=== PATIENT | male | born 1940 | race Caucasian/White ===

== ENCOUNTER → 2017-05-25 | Day surgery (SDC) | payer OTHER ==
[2017-04-28 11:32] VITALS: Ht 165.1 cm; Wt 108.2 kg
[~2017-05-25] VITALS: Ht 165.1 cm; Wt 108.2 kg
[~2017-05-25] MED LIST: ACETAMINOPHEN 325 MG TAB PO PRN; ACT15 PO; ASPI325T45 PO; ATROPINE SULFATE 0.1 MG/ML 5ML SYR IV PRN; ATROPINE SULFATE 1% OP SOLN 2 ML BTL ONE; AcetylCHOLine CHL OP SOL 1:100 2 ML BTL ONE; BRIMONIDINE TART 0.2% OP SOLN PER DROP CHARGE ONE; EpHEDrine SULFATE INJ 50 MG/ML AMP IV PRN; EpINEphrine INJ 1MG/ML AMP 1 MG/ML AMP ONE; GLIP-171 PO; HYDR25TA5 PO; LACTATED RINGER'S 1000ML 500 ML IV SCH; LIDOCAINE 3.5% OPH GEL PER APPLICATION CHARGE OPR SCH; LIDOCAINE 4% OP SOLN DROP CHARGE ONE; LIDOCAINE 4% OP SOLN DROP CHARGE OPR SCH; LIDOCAINE HCL 1% MPF 2 ML VIAL ONE; LISI40TA PO; METF-384 PO; METO50TA16 PO; MIDAZOLAM HCL 1 MG/ML 2ML VIAL ONE; MOXIFLOXACIN OPH SOLN PER DROP CHARGE ONE; ONDANSETRON INJ 2 MG/ML 2 ML VIAL IV PRN; POVIDONE-IODINE OP SOLN 30 ML BTL ONE; PROPARACAINE 0.5% OP SOLN PER DROP CHARGE OPR SCH; SIMV40TA2 PO; TETRACAINE HCL (OPHTH) 60 DROPS/4 ML BTL OP ONE; TMPOPS15 OPB; TOBRAMYCIN/DEXAMETHASONE OPH OINT PER APPLN CHARGE ONE
[2017-05-25] MEDS: MOXIFLOXACIN OPH SOLN PER DROP CHARGE OPR SCH ×3 (11:35→11:54)
--- NOTE | 2017-05-25 12:01 | History & Physical Bridge - [place] ---
H&P Re-Evaluation Bridge Note: I have examined the patient, reviewed the History & Physical and in the interval since the performance of the History & Physical I have noted the following changes of clinical significance: No changes noted
--- NOTE | 2017-05-25 13:40 | Discharge Instructions-SurgCtr ---
Discharge Instructions Date of Service May 25, 2017. Visit Reason for Visit: Right Eye Endothelial Corneal Dystrophy Discharge Discharge Diagnosis / Problem: corneal edema right eye Discharge Goals Goal(s): Improve function Medications Stopped Medications Name(s): ASA held x 3 days. Activity Recommendations Activity Limitations: per Instructions/Follow-up section Lifting Limitations: none Anesthesia . Post Anesthesia Instructions: If you have had General Anesthesia or IV Sedation: * Do not drive today. * Resume driving when surgeon permits. * Do not make important decisions or sign legal documents today. * Call surgeon for: 1. Temperature elevations greater than 101 degrees F. 2. Uncontrollable pain. 3. Excessive bleeding. 4. Persistent nausea and vomiting. 5. Medication intolerance (nausea, vomiting or rash). * For nausea and vomiting use only clear liquids such as: tea, soda, bouillon until nausea subsides, then gradually increase diet as tolerated. * If you have any concerns or questions, call your surgeon's office. If physician is unavailable and it is an emergency, call 911 or go to the nearest emergency room. . Instructions / Follow-Up Instructions / Follow-Up ACTIVITY RECOMMENDATIONS: * Bedrest except for bathroom and meals (eyes to the mirtha) MEDICATIONS: Resume previous medications unless instructed otherwise by your surgeon. Eye drops (today and tomorrow): Gatifloxacin - one drop operative eye 4 times daily Prednisolone 1% - one drop operative eye 4 times daily SPECIAL CARE INSTRUCTIONS: * If any problems or concerns, please call Dr. Candelaria's office at . * Keep plastic shield taped over eye to sleep at night. * Keep plastic shield taped over eye except to administer eye drops. * Keep plastic shield on until office visit the following day. FOLLOW UP VISIT: Follow-up with Dr. Candelaria in the [place] office as scheduled. If not already scheduled, please call the office at . Diet Recommendations Home Diet: resume previous diet Procedures Procedures Performed: Right Eye Descements Stripping Automated Endothelial Keratoplasty With Trimming Of Intraocular Tube Pending Studies Studies pending at discharge: yes List of pending studies: corneal donor rim culture Medical Emergencies . Who to Call and When: Medical Emergencies: If at any time you feel your situation is an emergency, please call 911 immediately. . Non-Emergent Contact Non-Emergency issues call your: Conference Organizer . . "Provider Documentation" section prepared by Alberto Candelaria. .
--- NOTE | 2017-05-25 13:40 | [facility] Post Operative Brief Note ---
Immediate Operative Summary Operative Date May 25, 2017. Pre-Operative Diagnosis Right Eye Endothelial Corneal Dystrophy Post-Operative Diagnosis Same Procedure(s) Performed Right Eye Descements Stripping Automated Endothelial Keratoplasty With Trimming Of Intraocular Tube Surgeon Dr Candelaria Litigation Assistant Surgeon(s) None Estimated Blood Loss 0ml Findings corneal edema and long intraocular tube right eye Specimens None Drains none Anesthesia local with sedation Complication(s) None Disposition Recovery Room / PACU
--- NOTE | 2017-05-25 14:03 | Anesthesia Progress Nt - [facility] ---
Anesthesia Post Op Note Date & Time May 25, 2017 at 14:03 Vital Signs Pain Intensity: 0 Vital Signs Past 12 Hours Date Time Temp Pulse Resp B/P (MAP) Pulse Ox O2 Delivery O2 Flow Rate FiO2 05/25/17 13:40 36.3 67 16 149/78 (101) 97 Room Air 05/25/17 11:23 36.6 61 20 162/82 (108) 98 Room Air Notes Mental Status: alert / awake / arousable, participated in evaluation Pt Amnestic to Procedure: No Nausea / Vomiting: adequately controlled Pain: adequately controlled Airway Patency, RR, SpO2: stable & adequate BP & HR: stable & adequate Hydration State: stable & adequate Anesthetic Complications: no major complications apparent Non distressing recall as discussed preop
[2017-05-25 14:42] VITALS: BP 159/72; PULSE 67; O2SAT 94
--- NOTE | 2017-05-25 19:28 | OPERATIVE REPORT ---
DATE OF OPERATION: 05/25/2017 PREOPERATIVE DIAGNOSIS: Corneal edema, right eye. POSTOPERATIVE DIAGNOSIS: Same. PROCEDURE PERFORMED: Descemets' Stripping Automated Endothelial Keratoplasty, right eye. COMPLICATIONS: None. ESTIMATED BLOOD LOSS: None. ANESTHESIA: Local with sedation. OPERATIVE REPORT: After informed consent was obtained in the holding area, attention was first turned to the donor cornea. It was placed endothelial side up on the corneal trephine and trephinated with a 7.5 mm Karina trephine by myself. It was then covered in Optisol and set aside. The patient was then brought back into the operating room where cardiac monitoring leads and oxygen by nasal cannula was administered by Anesthesia. Gentle IV sedation was given. The patient's right eye was prepped and draped in usual sterile fashion. Wire lid speculum was placed in the right eye, and the operating microscope swung into position. Using 0.12 forceps and a supersharp blade, a paracentesis port was made at the 11 o'clock position of the patient's right eye. 1% non-preserved lidocaine was injected into the anterior chamber. The previously used corneal trephine was then inked and used to luis the center diameter of the right cornea. A 2.2 mm keratome blade was then used to make a shelved clear cornea incision at the 9 o'clock position of the patient's right eye. The anterior chamber was then filled with Healon. The main incision was then marked for 4 mm and widened to that width. Lens cutting scissors were then inserted into the eye and used to trim shorter the glaucoma filtering tube that was inside the anterior chamber. The trimmed portion was then removed from the eye using Colibri forceps. A reversed Sinskey hook was then used to score and strip Descemet's membrane from within the marked area. The Descemet stripper removed the membrane once stripped. Stromal engineering officer was then used to roughen the stromal bed in the periphery of the stripped area. Irrigation aspiration handpiece was then used to remove the viscoelastic material from the eye. The donor cornea was then placed endothelial side up on the host cornea, and a drop of Healon was placed on it. It was then placed on the EndoSerter and retracted into the EndoSerter. The EndoSerter was then used to insert the corneal graft into the eye. The graft was unfolded underneath BSS and air and centered using reverse Sinskey hook. A single 10-0 nylon suture was placed through the main incision. A complete air fill of the eye was achieved and held for 15 minutes. At the conclusion of 15 minutes, 3 drops of atropine were placed on the eye, and the interface was milked using a Arkadium LASIK roller. Another 10 minutes elapsed after which time a partial air fluid exchange was done leaving behind a 50% air fill. ReSure sealant was then placed over the paracentesis as well as the primary incision. The wire lid speculum was removed from the eye. Vigamox and TobraDex were placed on the eye, and the eye was shielded. The patient tolerated the procedure well and was then taken to the recovery area to lay flat for an hour. I attest to the content of the Intraoperative Record and any orders documented therein. Any exceptions are noted below. MAINORD
== END | disposition home or self-care (01) ==
LOC: X.SURG 10:38
PROVIDERS: ATTEND Ophthalmology
DX: H18.20 Unspecified corneal edema (principal); H40.9 Unspecified glaucoma; H25.11 Age-related nuclear cataract, right eye; I10 Essential (primary) hypertension; E11.9 Type 2 diabetes mellitus without complications; E78.5 Hyperlipidemia, unspecified; M19.90 Unspecified osteoarthritis, unspecified site; E66.01 Morbid (severe) obesity due to excess calories; Z90.89 Acquired absence of other organs